=== PATIENT | male | born 1955 ===

== ENCOUNTER → 2020-08-26 | Day surgery (SDC) | payer OTHER | END | disposition home or self-care (01) | LOC: AMB-ENDOS 08-18 12:00 → ADM 08-18 12:00 → AMB-ENDOS 11:42 | PROVIDERS: ATTEND Surgery | DX: D12.2 Benign neoplasm of ascending colon (principal); D12.5 Benign neoplasm of sigmoid colon; Z20.822 Contact with and (suspected) exposure to COVID-19 ==